=== PATIENT | male | born 1945 | race Caucasian/White ===

== ENCOUNTER → 2016-10-16 08:24 | Outpatient (CLI) | payer OTHER ==
--- NOTE | ~2016-10-16 | EC ---
PATIENT:HOWARD SCHMIDT DATE OF SERVICE: 10/16/16 SEX: M MEDICAL RECORD: [id number] DATE OF : 45 [facility] AGE OF PATIENT: 71 ADMISSION DATE: 10/16/16 REFERRING PHYSICIAN: INTERPRETING PHYSICIAN: ELVER FLORIAN MD ECHOCARDIOGRAM REPORT ECHO CHARGES 4 ECHO COMPLETE CLINICAL DIAGNOSIS: IHD HX OF HTN/DM ECHOCARDIOGRAPHIC MEASUREMENTS (adult normal given) AC root (d.<3.7cm) 4.0 LV Septum d (<1.2 cm> 1.5 Valve Excursion 2.2 LV Septum (systole) 1.7 Left Atria (s.<4.0cm> 3.5 LVPW d(<1.2cm) 1.8 RV (d.<2.3cm) 4.7 LVPW (sytole) 2.0 LV diastole(<5.6CM) 5.6 MV E-F(>70mm/sec) LV systole 4.1 LVOT Diameter 1.9 MV exc.(>10mm) 1.5 Est.ejection fraction (50-75%) Pericardial Effusion N DOPPLER: LVIT A 92.0 E 75.0 LA RVSP 21 LVOT 144 AOP1/2T Asc. Ao 196 RVOT 125 RA PA 156 AV Gradient Peak 15.32 AV Mean 6.38 AV Area 2.0 MV Gradient Peak 3.68 MV Mean 1.67 MV Area COMMENTS: PA 156 CM/SEC RVSP 21 [facility] Patent Law Specialist: Jazmín PIEDRA Deblocker:1 Dr. Florian TAPE# PACS TWO-DIMENSIONAL ECHOCARDIOGRAM WITH DOPPLER 1. Left ventricular chamber size is within normal limits. Left ventricular systolic function is normal. Overall ejection fraction is estimated at 55 percent. 2. Left atrium, right atrium, and right ventricular chamber sizes are within normal limits. 3. Valvular structures have normal structure and motion. 4. Doppler interrogation only reveals trace tricuspid regurgitation; no other valvular insufficiency or stenosis. 5. No evidence of pericardial effusion or left ventricular thrombus. ECHOCARDIOGRAM REPORT [id number] HOWARD SCHMIDT ELVER ANTHONY MD CC: [id number] DICTATION DATE: 10/16/16 1400 PARTY DEMONSTRATOR: DM 10/17/16 1354 DEP CLI 10/16/16 [place] [address]
[2016-10-16 09:09] LABS: ALBUMIN 4.1 g/dL (3.4-5.0); BILIRUBIN - TOTAL 0.73 mg/dL (0.2-1.3); CALCIUM 9.3 mg/dL (8.5-10.1); CARBON DIOXIDE 22.5 mmol/L (21.0-32.0); CREATININE - SERUM 1.6 mg/dL (0.6-1.3); POTASSIUM - SERUM 4.5 mmol/L (3.5-5.1); PROTEIN - SERUM 8.2 g/dL (6.4-8.2)
[2016-10-16 09:11] LABS: APPEARANCE CLEAR (CLEAR); BILIRUBIN NEGATIVE (NEGATIVE); COLOR YELLOW (YELLOW); GLUCOSE NEGATIVE (NEGATIVE); KETONE NEGATIVE (NEGATIVE); LEUKOCYTE ESTERASE NEGATIVE (NEGATIVE); NITRITE NEGATIVE (NEGATIVE); PROTEIN NEGATIVE (NEGATIVE); UROBILINOGEN NORMAL (NORMAL)
== END | disposition home or self-care (01) ==
LOC: D.ECHO 08:24
PROVIDERS: Orthopaedic Surgery
DX: E11.65 Type 2 diabetes mellitus with hyperglycemia (principal); I25.9 Chronic ischemic heart disease, unspecified

== ENCOUNTER 2019-04-04 08:14 | Emergency (ER) | payer OTHER ==
[~2019-04-04] VITALS: Ht 182.9 cm; Wt 124.5 kg
--- NOTE | ~2019-04-04 | HEMODYNAMI ---
PATIENT:HOWARD SCHMIDT MEDICAL RECORD: [id number] : 45 LOCATION:[facility] ADMISSION DATE: 04/04/19 Generatedon:04/04/201910:46 Patient name: HOWARD SCHMIDT Patient #: [id number] SSN: : 1945 Date of study: 04/04/2019 Page: Of Hemodynamic Procedure Report Patient Data Patient Demographics Procedure consent was obtained First Name: HOWARD Gender: Male Last Name: BRAYAN : 1945 Middle Initial: D Age: 73 year(s) Patient #: [id number] Race: Unknown Additional ID: [id number] Contact details [address]: [address] [place] [address] State: [place] City: [place] Zip code: [address] Past Medical History Allergies: No known allergies Admission Admission Data Admission Date: 04/04/2019 Admission Time: 8:14 Procedure Procedure Types Cath Procedure Peripheral Cath Diagnostic Procedure Miscellaneous Aspiration/Injection (Joint) Procedure Description Procedure Date Procedure Date: 04/04/2019 Procedure Start Time: 10:37 Procedure Staff Name Function Best Cunha MD Performing Physician JENNY WU RT Monitor Procedure Data Cath Procedure Fluoroscopy Diagnostic fluoroscopy Total fluoroscopy Time: 0 time: 0 min min Hemodynamics Rest Pre Cath Intra NCS Post Cath Procedure Log Time Note 10:21:58 SAFE-T PLUS MYELOGRAM TRAY opened to sterile field. 10:22:02 JENNY WU RT (R) sent for patient. Start room use. 10:22:03 Time tracking: Regular hours (M-F 7:00 - 5:00) 10:23:33 Patient received from ED to IR Alert and oriented. Tansferred to table in Supine position. 10:23:36 Signed procedure consent form obtained from patient. 10:23:37 Warm blankets applied, and aretha hugger turned on for patient comfort. 10:23:37 Correct patient and procedure confirmed by team. 10:23:39 - 10:23:44 H&P Date Dictated: 04/04/2019 ER History on chart.. 10:23:46 Pre-procedure instructions explained to patient. 10:23:47 Pre-op teaching completed and patient verbalized understanding. 10:23:55 Patient allergic to No known allergies 10:23:57 Is patient on blood thinner?Yes 10:24:01 ACC The patient was administered the following blood thiners within the last 24 hours: ACCAspirin 10:24:13 - 10:31:46 Physician arrived 10:32:11 --------ALL STOP TIME OUT------ 10:33:01 Left knee site verified by team. 10:33:20 Procedure started. 10:33:21 Full Disclosure recording started 10:37:57 Local anesthetic to Left Knee with Lidocaine 1% by Best Cunha MD.INITIA L ACCESS ONLY 10:44:40 Procedure ended.(Physican Out) 10:44:50 Fluoroscopy time 00.00 minutes. 10:44:54 Dose Area Product 0 mGy/cm. 10:45:08 Post-op/insertion site Left knee dressed using a Bandaid. 10:45:16 Post procedure instruction explained to patient.Patient verbalizes understanding. 10:45:17 Procedure and supply charges have been captured, reviewed, submitted an d are correct. 10:45:45 Patient transfered to ED with Stretcher. 10:45:47 End room use (Document Last) Device Usage Item Name Manufacture Quantity Catalog Hospital Part Current Minimal Lot# / Number Charge Number Stock Stock Serial# Code SAFE-T [employer] 1 [id number] PLUS MYELOGRAM TRAY Signature Audit [place] Stage Time Signature Unsigned Intra-Procedure 04/04/2019 JENNY WU RT 10:46:05 AM (R) [facility] [address] [place] [address]
[2019-04-04 08:20] VITALS: Ht 182.9 cm; Wt 124.5 kg
[2019-04-04] MEDS ORDERED: SYMBICORT 80-10.2 GM INH (08:22)
[2019-04-04] MEDS ORDERED: KAZANO 12.5-1,1 EACH PO (08:22)
[2019-04-04] MEDS ORDERED: LISINOPRIL40 MG PO (08:22)
[2019-04-04] MEDS ORDERED: FLOMAX0.4 MG PO (08:22)
[2019-04-04] MEDS ORDERED: TOPROL XL100 MG PO (08:23)
[2019-04-04] MEDS ORDERED: PROCARDIA XL30 MG PO (08:23)
[2019-04-04] MEDS ORDERED: FUROSEMIDE40 MG PO (08:23)
[2019-04-04 09:15] LABS: BASOPHILS 0.4 % (0-2); EOSINOPHILS 3.5 % (0-7); HEMATOCRIT 36.3 % (42.0-54.0); HEMOGLOBIN 11.9 g/dL (13.5-17.5); IMMATURE GRANULOCYTES 0.6 % (0-5); LYMPHOCYTES 11.2 % (15-50); MCH 29.8 pg (26.0-34.0); MCHC 32.8 g/dL (31.0-37.0); MEAN PLATELET VOLUME 10.1 fL (7.4-10.4); MONOCYTES 8.4 % (2-11); NEUTROPHILS 75.9 % (40-80); PLATELET COUNT 271 10x3/uL (130-400); RBC 3.99 10x6/uL (4.20-6.10); RDW 12.4 % (11.5-14.5); WBC 11.2 10x3/uL (4.8-10.8)
[2019-04-04 09:21] LABS: ANION GAP 15.4 mmol/L (8-16); CALCIUM 8.5 mg/dL (8.5-10.1); CREATININE - SERUM 1.8 mg/dL (0.6-1.3); POTASSIUM - SERUM 4.4 mmol/L (3.5-5.1)
[2019-04-04 09:24] LABS: C-REACTIVE PROTEIN 11.2 mg/dL (0.0-0.9); URIC ACID 9.9 mg/dL (2.6-7.2)
[2019-04-04] MEDS ORDERED: ZYLOPRIM300 MG PO (10:02)
[2019-04-04] MEDS ORDERED: INDOCIN-SR75 MG PO (10:02)
[2019-04-04 11:16] VITALS: BP 126/77
[2019-04-04 14:14] LABS: MACROPHAGES BF 12 %; NEUT - BF 77 %
[2019-04-04 14:52] LABS: PROTEIN - BODY FLUID 4.2 G/DL
== END 2019-04-04 11:18 | disposition home or self-care (01) ==
LOC: D.ER 08:14
PROVIDERS: Emergency Medicine
DX: M10.9 Gout, unspecified (principal); M25.562 Pain in left knee; M17.12 Unilateral primary osteoarthritis, left knee; E11.9 Type 2 diabetes mellitus without complications; I10 Essential (primary) hypertension; Z79.84 Long term (current) use of oral hypoglycemic drugs; J44.9 Chronic obstructive pulmonary disease, unspecified

== ENCOUNTER 2019-08-30 08:21 | Emergency (ER) | payer MEDICARE ==
[~2019-08-30] VITALS: Ht 182.9 cm; Wt 120.0 kg
[~2019-08-30 08:21] MED LIST: FLOMAX0.4 MG PO; FUROSEMIDE40 MG PO; INDOCIN-SR75 MG PO; KAZANO 12.5-1,1 EACH PO; LISINOPRIL40 MG PO; PROCARDIA XL30 MG PO; SYMBICORT 80-10.2 GM INH; TOPROL XL100 MG PO; ZYLOPRIM300 MG PO
[2019-08-30 08:32] VITALS: Ht 182.9 cm; Wt 120.0 kg
[2019-08-30] MEDS ORDERED: ASPIRIN81 MG PO (08:35)
[2019-08-30] MEDS ORDERED: ZYLOPRIM300 MG PO (08:37)
[2019-08-30 10:17] LABS: ANION GAP 16.4 mmol/L (8-16); CALCIUM 9.4 mg/dL (8.5-10.1); CREATININE - SERUM 1.7 mg/dL (0.6-1.3); POTASSIUM - SERUM 4.4 mmol/L (3.5-5.1)
[2019-08-30 10:19] LABS: BASOPHILS 0.5 % (0-2); EOSINOPHILS 0.8 % (0-7); HEMATOCRIT 34.8 % (42.0-54.0); HEMOGLOBIN 11.1 g/dL (13.5-17.5); IMMATURE GRANULOCYTES 0.8 % (0-5); LYMPHOCYTES 12.4 % (15-50); MCHC 31.9 g/dL (31.0-37.0); MCV 87.9 fL (80.0-100.0); MEAN PLATELET VOLUME 9.5 fL (7.4-10.4); MONOCYTES 7.5 % (2-11); RBC 3.96 10x6/uL (4.20-6.10); RDW 13.9 % (11.5-14.5); WBC 13.2 10x3/uL (4.8-10.8)
[2019-08-30 10:21] LABS: PLATELET COUNT 405 10x3/uL (130-400)
[2019-08-30 10:23] LABS: ALBUMIN 3.4 g/dL (3.4-5.0); BILIRUBIN - TOTAL 0.45 mg/dL (0.2-1.3); C-REACTIVE PROTEIN 11.6 mg/dL (0.0-0.9); PROTEIN - SERUM 7.9 g/dL (6.4-8.2); URIC ACID 7.3 mg/dL (2.6-7.2)
[2019-08-30] MEDS ORDERED: PREDNISONE50 MG PO (10:49)
[2019-08-30] MEDS ORDERED: ULTRAM50 MG PO (10:49)
[2019-08-30 11:32] VITALS: BP 146/76
[2019-08-30 11:43] LABS: ERYTHROCYTE SEDIMENTATION RATE 92 mm/hr (0-20)
== END 2019-08-30 11:38 | disposition home or self-care (01) ==
LOC: D.ER 08:21
PROVIDERS: Family Medicine
DX: M25.562 Pain in left knee (principal); M25.561 Pain in right knee; M10.9 Gout, unspecified; M79.18 Myalgia, other site; M79.605 Pain in left leg; M79.604 Pain in right leg; R79.89 Other specified abnormal findings of blood chemistry; I11.0 Hypertensive heart disease with heart failure; I50.9 Heart failure, unspecified; J44.9 Chronic obstructive pulmonary disease, unspecified